=== PATIENT | male | born 2000 | race Caucasian/White ===

== ENCOUNTER 2021-08-13 03:54 | Emergency (ER) | payer OTHER ==
--- NOTE | 2021-08-13 04:44 | NUR ---
Written and verbal consent obtained from patient for blood alcohol draw, name and verified by patient. Disinfected patient's skin with iodine that did not contain alcohol or other volatile organic compound. Collected the blood from the subject named by venipuncture at [id number], in the presence of [facility] Officer Linsey Bedolla and Lulu. Used a sterile, dry hypodermic needle and dry vacuum blood collection. Two dry vacuum blood collection was supplied by the [facility] officers named above. Withdrew a specimen of blood from the right AC of the subject named above. Inverted both blood tubes several times to ensure that the preservative and anticoagulant were thoroughly mixed in the blood specimen. I initialed both blood tube labels for identification. The labeled blood tubes were handed directly to [facility] Officer Linsey Bedolla. The blood tubes stopper remained in place while I had possession of the blood tubes. The [facility] Officer Margareth Bedolla placed tubes into envelope and sealed it in my presence. Envelope initialed by myself and [facility] Officer named above with the date and time. Patient tolerated the blood draw well, bandage applied, and bleeding controlled, applied band aid to site.
== END 2021-08-13 04:49 ==
LOC: SED 03:54
DX: Z02.83 Encounter for blood-alcohol and blood-drug test (principal)